=== PATIENT | female | born 2000 | race Caucasian/White ===

== ENCOUNTER 2021-12-07 15:13 | Outpatient (CLI) | payer BC, SELFPAY ==
[2021-12-07 21:32] LABS: Iron* 120 ug/dL (37-170)
[2021-12-07 21:41] LABS: Percent Iron Saturation 26 % (20-50); Total Iron Binding Capacity 465 ug/dL (265-497)
[2021-12-07 22:06] LABS: TSH With Reflex to FT4* 0.672 uIU/mL (0.270-4.200)
[2021-12-08 02:07] LABS: Vitamin B12* 352 pg/mL (243-894)
[2021-12-10 16:56] LABS: Folate, Serum 12.5 ng/mL (>=5.9)
== END 2021-12-07 15:14 | disposition home or self-care (01) ==
PROVIDERS: PCP Physician Assistant Medical; Visit Provider Physician Assistant Medical
DX: D64.9 Anemia, unspecified (principal); R53.83 Other fatigue; R23.2 Flushing; K59.00 Constipation, unspecified
CPT/HCPCS: 82607; 82746; 83540; 83550; 84443

== ENCOUNTER 2022-09-18 08:28 | Outpatient (CLI) | payer BC, SELFPAY | END 2022-09-18 08:29 | disposition home or self-care (01) | PROVIDERS: PCP Physician Assistant Medical; Visit Provider Physician Assistant Medical | DX: M79.641 Pain in right hand (principal); M79.642 Pain in left hand | CPT/HCPCS: 86039; 86140; 86200; 86431; 86812 ==

== ENCOUNTER 2023-02-01 10:12 | Outpatient (CLI) | payer BC, SELFPAY | END 2023-02-01 10:13 | disposition home or self-care (01) | LOC: NFLDREF 02-05 09:16 | PROVIDERS: PCP Physician Assistant Medical; Referring Provider Physician Assistant Medical; Visit Provider Physician Assistant Medical | DX: M06.9 Rheumatoid arthritis, unspecified (principal); Z11.1 Encounter for screening for respiratory tuberculosis | CPT/HCPCS: 82784; 86364; 86480 ==

== ENCOUNTER 2023-02-22 16:31 | Outpatient (CLI) | payer BC, SELFPAY ==
[2023-02-22 23:41] LABS: Chlamydia DNA Amplified* NOT DETECTED (No Detected); GC DNA Amplified* NOT DETECTED (No Detected)
== END 2023-02-22 16:32 | disposition home or self-care (01) ==
PROVIDERS: PCP Physician Assistant Medical; Visit Provider Physician Assistant Medical
DX: R53.83 Other fatigue (principal); Z11.3 Encounter for screening for infections with a predominantly sexual mode of transmission; H53.9 Unspecified visual disturbance; M06.9 Rheumatoid arthritis, unspecified
CPT/HCPCS: 80053; 82306; 84443; 85651; 87491; 87591

== ENCOUNTER 2023-03-09 15:17 | Outpatient (CLI) | payer BC, SELFPAY ==
--- NOTE | 2023-03-09 15:30 | CRLHL7_ITS ---
For Patients: As a result of the Century Cures Act, medical imaging exams and procedure reports are released immediately into your electronic medical record. You may view this report before your referring provider. If you have questions, please contact your health care provider. INDICATION: Unspecified visual disturbance. TECHNIQUE: Multiplanar multisequence MR imaging of the brain and sella prior to and following intravenous contrast. COMPARISON: None. FINDINGS: Normal intrinsic T1 shortening of the pituitary neurohypophysis. The pituitary gland demonstrates homogeneous enhancement without focal hypoenhancement to suggest an underlying lesion. The infundibulum is midline and normal in thickness. No mass effect on the optic chiasm or prechiasmatic optic nerves. No pathologic enhancement in the cavernous sinuses. The ventricles and sulci are within normal limits for patient age. No mass effect or midline shift. Small FLAIR hyperintensity within the inferior right parietal white matter (series 6, image 24), nonspecific. No intracranial hemorrhage or pathologic extra-axial fluid collection. No diffusion restriction to suggest acute infarction. No pathologic intracranial enhancement. The major arterial flow voids of the skullbase are preserved. The globes are symmetric. Minimal ethmoid sinus mucosal thickening. The mastoid air cells are clear. IMPRESSION 1. No acute intracranial abnormality. 2. No pituitary or sellar lesion. 3. Small FLAIR hyperintensity within the right parietal white matter is nonspecific, though most typical for sequelae of migraine headaches or minimal chronic microvascular ischemic change. Dictated by Brian Higuera MD @ 03/11/2023 9:18:03 AM (Electronically Signed)
== END 2023-03-09 15:18 | disposition home or self-care (01) ==
LOC: MRI 15:17
PROVIDERS: PCP Physician Assistant Medical; Visit Provider Physician Assistant Medical
DX: H53.9 Unspecified visual disturbance (principal)
CPT/HCPCS: 70553; A9575

== ENCOUNTER 2024-09-01 15:19 | Outpatient (CLI) | payer BC, SELFPAY | END 2024-09-01 15:20 | disposition home or self-care (01) | PROVIDERS: PCP Physician Assistant Medical; Visit Provider Physician Assistant Medical | DX: R10.13 Epigastric pain (principal); Z79.3 Long term (current) use of hormonal contraceptives | CPT/HCPCS: 82306; 82607; 82728; 82746; 86140 ==